=== PATIENT | female | born 1990 | race Caucasian/White ===

== ENCOUNTER 2018-08-06 11:16 | Outpatient (CLI) | payer BC ==
[~2018-08-06] VITALS: Ht 172.7 cm; Wt 82.6 kg
[2018-08-06] MEDS ORDERED: BCP PO (11:35)
[2018-08-09] MEDS ORDERED: IBUP-1773 PO (08:38)
[2018-08-09] MEDS ORDERED: ACHD5005 PO (08:38)
== END 2018-08-06 11:46 ==
LOC: PREOP 11:16
PROVIDERS: ATTEND Obstetrics & Gynecology
DX: Z01.818 Encounter for other preprocedural examination (principal); R10.2 Pelvic and perineal pain

== ENCOUNTER 2018-08-09 06:05 | Day surgery (SDC) | payer BC ==
[~2018-08-09] VITALS: Ht 172.7 cm; Wt 80.5 kg
[~2018-08-09 06:05] MED LIST: BCP PO
--- OUTSIDE RECORDS SUMMARY | 2018-08-09 06:09 | XMS REPORT | Clinical Summary ---
Author Author [facility] Organization [facility] Address Unknown Phone Unavailable Care Team Providers Care Cisco Consultant Name Role Phone Anastasia Souza MD PCP Source Comments Some departments are not documenting in the electronic medical record. If you do not see the information that you expected, contact Release of Information in the Health Information Management department at [phone] for further assistance in locating additional records.[facility] Allergies No Known Allergies Medications End Date Status Medication Sig Dispensed Refills Start Date Active electrolyte GUT PEG Mix as 4000 mL 0 (NULYTELY, COLYTE, directed on 8 GAVILYTE-N) 420 gram oral package. solution Follow prep instructions. Refrigerate once mixed. Active omeprazole DR(+) Take one 30 capsule 3 (PRILOSEC) 20 mg capsule capsule by 8 mouth daily before breakfast. Active lidocaine (LIDODERM) 5 % Apply one 30 patch 1 topical patch patch 8 topically to affected area every 24 hours. Apply patch for 12 hours, then remove for 12 hours before repeating. Active desogestrel-ethinyl Take 1 tablet 0 estradiol (DESOGEN; by mouth ORTHO-CEPT (28); APRI; daily. SOLIA; RECLIPSEN (28); EMOQUETTE) tablet Active nortriptyline (PAMELOR) Take three 90 capsule 3 25 mg capsule capsules by 8 mouth at bedtime daily. Take 1 cap qhs x5d, then 2 caps qhs x5d, then 3 caps qhs thereafter Active Problems No known active problems Encounters Care Team Description Date Type Specialty Phuong Bowden, Francesco Watson MD Abdominal pain, generalized (Primary Dx); Neuropathic pain; Myalgia, other site; Spasm of muscle; Myofascial pain; Chronic bilateral low back pain without sciatica 07/08/2018 Office Visit Anesthesia Pain Phuong Bowden DO Records Request 07/07/2018 Telephone Gastroenterology Phuong Bowden DO Results 06/30/2018 Telephone Gastroenterology Phuong Bowden DO Celiac disease 06/23/2018 Hospital Lab Encounter Phuong Bowden DO 06/15/2018 Hospital Radiology Encounter Phuong Bowden DO 06/15/2018 Hospital Radiology Encounter Phuong Bowden DO Results 06/09/2018 Telephone Gastroenterology Phuong Bowden DO Celiac disease 06/04/2018 Hospital Lab Encounter Phuong Bowden DO Celiac disease (Primary Dx) 06/04/2018 Office Visit Gastroenterology from Last 3 Months Family History Medical History Relation Name Comments None Reported Father None Reported Mother Relation Name Status Comments Father Alive Mother Alive Social History Date Tobacco Use Types Packs/Day Years Used Never Smoker Smokeless Tobacco: Never Used Alcohol Use Drinks/Week oz/Week Comments Yes Sex Assigned at Date Recorded Not on file Industry Job Start Date Occupation Not on file Not on file Not on file Travel End Travel History Travel Start No recent travel history available. Last Filed Vital Signs Time Taken Vital Sign Reading 07/08/2018 7:55 AM [employer] SOFTWARE ENGINE[employer] Blood Pressure 116/81 07/08/2018 7:55 AM [employer] SOFTWARE ENGINEER Pulse 70 - Temperature - 07/08/2018 7:55 AM [employer] SOFTWARE ENGINEER Respiratory Rate 16 07/08/2018 7:55 AM [employer]AVA SOFTWARE ENGINEER Oxygen Saturation 98% - Inhaled Oxygen - Concentration 07/08/2018 7:55 AM JAVA SOFTWARE ENGINEER Weight 81.2 kg (179 lb) 07/08/2018 7:55 AM JAVA SOFTWARE ENGINEER Height 182.9 cm (6') 07/08/2018 7:55 AM JAVA SOFTWARE ENGINEER Body Mass Index 24.28 Plan of Treatment Health Maintenance Due Date Last Done Comments PHYSICAL (COMPREHENSIVE) 1999 EXAM HPV VACCINES (1 - Female 2003 3-dose series) HIV SCREENING 2007 DTAP/TDAP VACCINES (1 - 2010 Tdap) CERVICAL CANCER SCREENING 2013 INFLUENZA VACCINE 03/10/2018 Procedures Comments Procedure Name Priority Date/Time Associated Diagnosis CELIAC ASSOC HLA TYPING, Routine 06/23/2018 Celiac disease BLOOD 10:[address] ENTEROGRAPHY Routine 06/15/2018 Celiac disease 2:23 PM JAVA SOFTWARE ENGINEER BONE DENSITY SPINE/HIP Routine 06/15/2018 Celiac disease 1:30 PM JAVA SOFTWARE ENGINEER ENDOMYSIAL AB, IGA Routine 06/04/2018 Celiac disease W/REFLEX 12:20 PM CDT CELIAC SCREEN Routine 06/04/2018 Celiac disease 12:20 PM CDT CORTISOL,RANDOM Routine 06/04/2018 Celiac disease 12:20 PM CDT 25-OH VITAMIN D (D2 + D3) Routine 06/04/2018 Celiac disease 12:20 PM CDT from Last 3 Months Results * CELIAC ASSOC HLA TYPING, BLOOD (06/23/2018 10:39 AM JAVA SOFTWARE ENGINEER) DQ Alpha 1 01,05:01 REFERENCE [facility] Reference range: Not Applicable [facility] DQ Beta 1 02:01,05:03 REFERENCE [facility] Reference range: Not Applicable DQ Serologic Equivalent: 2,5 [facility] Celiac Gene Pairs Yes REFERENCE LAB [facility] Interpretation Celiac These genes are permissive for [facility] HLA-DQ celiac disease.The absence of HLA celiac permissive genes would make the presence of celiac disease unlikely.However, these genes can also be present in the normal population. ADDITIONAL INFORMATION Method: Molecular typing of HLA antigens performed using reverse SSOP and/or SSP methods, reported as serological equivalents and low to medium resolution molecular values. Performing Laboratory CLIA# [id number] [facility] Performing Organization Address City/State/Zipcode Phone Number REFERENCE LAB REFERENCE LAB See results for address. * CT ENTEROGRAPHY (06/15/2018 2:23 PM JAVA SOFTWARE ENGINEER) Impressions Performed At Unremarkable CT enterography. [facility] By my electronic signature, I attest that I have personally reviewed the images for this examination and formulated the interpretations and opinions expressed in this report Finalized by Yovani Austin D.O. on 06/15/2018 2:46 PM. Dictated by Pato Ramirez D.O. on 06/15/2018 2:25 PM. Narrative Performed At CT ABDOMEN AND PELVIS [facility] Clinical Indication: Female, 28 years. Abdominal pain, history of celiac disease. Technique:Multiple contiguous axial images were obtained through the abdomen and pelvis following the administration of IV contrast material. Post processing coronal and sagittal reconstruction images were made from the axial images. IV contrast: Omnipaque-350 Bowel contrast:Breeza and water Comparison: None FINDINGS: Lower Thorax: Unremarkable. Liver and Biliary system: Unremarkable. Spleen: Unremarkable. Adrenal Glands and Kidneys: Unremarkable. Pancreas and Retroperitoneum: Unremarkable. Aorta and Major Vessels: Normal caliber abdominal aorta with widely patent major visceral artery origins. Bowel, Mesentery and Peritoneal space: There is adequate distention of the small bowel loops with the ingested oral contrast material. The small and large bowel loops are normal in caliber. No mural thickening or obvious mucosal abnormalities demonstrated. No perienteric inflammation. No adenopathy or ascites. Pelvis: Unremarkable. Abdominal wall and Osseous Structures: No aggressive appearing osseous lesion. Procedure Note Interface, Radiant Results - 06/15/2018 2:[address] ABDOMEN AND PELVIS Clinical Indication: Female, 28 years. Abdominal pain, history of celiac disease. Technique: Multiple contiguous axial images were obtained through the abdomen and pelvis following the administration of IV contrast material. Post processing coronal and sagittal reconstruction images were made from the axial images. IV contrast: Omnipaque-350 Bowel contrast: Breeza and water Comparison: None FINDINGS: Lower Thorax: Unremarkable. Liver and Biliary system: Unremarkable. Spleen: Unremarkable. Adrenal Glands and Kidneys: Unremarkable. Pancreas and Retroperitoneum: Unremarkable. Aorta and Major Vessels: Normal caliber abdominal aorta with widely patent major visceral artery origins. Bowel, Mesentery and Peritoneal space: There is adequate distention of the small bowel loops with the ingested oral contrast material. The small and large bowel loops are normal in caliber. No mural thickening or obvious mucosal abnormalities demonstrated. No perienteric inflammation. No adenopathy or ascites. Pelvis: Unremarkable. Abdominal wall and Osseous Structures: No aggressive appearing osseous lesion. IMPRESSION Unremarkable CT enterography. By my electronic signature, I attest that I have personally reviewed the images for this examination and formulated the interpretations and opinions expressed in this report Finalized by Yovani Austin D.O. on 06/15/2018 2:46 PM. Dictated by Pato Ramirez D.O. on 06/15/2018 2:25 PM. Performing Organization Address City/State/Zipcode Phone Number [facility] * BONE DENSITY SPINE/HIP (06/15/2018 1:30 PM JAVA SOFTWARE ENGINEER) Impressions Performed At Bone mineral density is within the expected range for age. [facility] General comments regarding interpretation of bone mineral density measurements : a) Consider FDA-approved medical therapies in the setting of Z-score below the expected range for age in a patient with recent fractures and/or chronic high risk medications (such as glucocorticoids). Treatment may also be indicated based on clinical judgement and/or patient preference. b) Interval between BMD testing should be determined according to each patient 's clinical status: typically one year after initiation or change of therapy is appropriate, with longer intervals once therapeutic effect is established. More frequent testing is appropriate in conditions with rapid bone loss. Approved by David Gonzalez M.D. on 06/15/2018 1:34 PM By my electronic signature, I attest that I have personally reviewed the images for this examination and formulated the interpretations and opinions expressed in this report Finalized by James Carroll M.D. on 06/15/2018 2:24 PM. Dictated by David Gonzalez M.D. on 06/15/2018 1:33 PM. Narrative Performed At BONE DENSITOMETRY [facility] CLINICAL INDICATION: 28-year-old female. Celiac disease. COMPARISON: None FINDINGS: DEXA scan of the lumbar spine and bilateral hips were performed with [employer]. LUMBAR SPINE, L1-L4 1.290 g/cm2, Z-score of 0.2 LEFT FEMORAL NECK 1.138 g/cm2, Z-score of 0.4 LEFT TOTAL HIP 1.147 g/cm2, Z-score of 0.7 RIGHT FEMORAL NECK 1.075 g/cm2, Z-score of -0.1 RIGHT TOTAL HIP 1.114 g/cm2, Z-score of 0.5 Categories of bone mineral density (Z-score)* Below the expected range for age (-2.0 and lower) Within the expected range for age (above -2.0) *Based on region with lowest bone mineral density. Procedure Note Interface, Radiant Results - 06/15/2018 2:27 PM JAVA SOFTWARE ENGINEER BONE DENSITOMETRY CLINICAL INDICATION: 28-year-old female. Celiac disease. COMPARISON: None FINDINGS: DEXA scan of the lumbar spine and bilateral hips were performed with [employer]. LUMBAR SPINE, L1-L4 1.290 g/cm2, Z-score of 0.2 LEFT FEMORAL NECK 1.138 g/cm2, Z-score of 0.4 LEFT TOTAL HIP 1.147 g/cm2, Z-score of 0.7 RIGHT FEMORAL NECK 1.075 g/cm2, Z-score of -0.1 RIGHT TOTAL HIP 1.114 g/cm2, Z-score of 0.5 Categories of bone mineral density (Z-score)* Below the expected range for age (-2.0 and lower) Within the expected range for age (above -2.0) *Based on region with lowest bone mineral density. IMPRESSION Bone mineral density is within the expected range for age. General comments regarding interpretation of bone mineral density measurements: a) Consider FDA-approved medical therapies in the setting of Z-score below the expected range for age in a patient with recent fractures and/or chronic high risk medications (such as glucocorticoids). Treatment may also be indicated based on clinical judgement and/or patient preference. b) Interval between BMD testing should be determined according to each patient' s clinical status: typically one year after initiation or change of therapy is appropriate, with longer intervals once therapeutic effect is established. More frequent testing is appropriate in conditions with rapid bone loss. Approved by David Gonzalez M.D. on 06/15/2018 1:34 PM By my electronic signature, I attest that I have personally reviewed the images for this examination and formulated the interpretations and opinions expressed in this report Finalized by James Carroll M.D. on 06/15/2018 2:24 PM. Dictated by David Gonzalez M.D. on 06/15/2018 1:33 PM. Performing Organization Address City/State/Zipcode Phone Number [facility] * ENDOMYSIAL AB, IGA W/REFLEX (06/04/2018 12:20 PM CDT) Endomysial IgA Negative [facility] Reference range: Negative A negative serum IgA endomysial antibody is usually seen in normal individuals, however a diagnosis of celiac disease, dermatitis herpetiformis and other gluten sensitive disorders cannot be completely excluded, as this test may be negative in a subset of individuals with these disorders. If the clinical suspicion for one of these disorders is high, recommend further testing for gluten sensitivity as indicated by the Celiac Disease Comprehensive [facility] ([facility] Code CDCOM). In addition serum IgA endomysial antibody may also be negative in gluten-sensitive patients (with celiac disease, dermatitis herpetiformis or other gluten-sensitive disorders), who adhere to a strict gluten-free diet. ADDITIONAL INFORMATION This test has been modified from the delicatessen clerk's instructions. Its performance characteristics were determined by [facility] in a manner consistent with CLIA requirements. This test has not been cleared or approved by the U.S. Food and Drug Administration. [facility] Specimen Blood Performing Organization Address City/[facility] Phone Number REFERENCE LAB REFERENCE LAB See results for address. * CELIAC SCREEN (06/04/2018 12:20 PM CDT) TTG IgA 4.4 <15 U/mL [facility] Interpretation NORMAL [facility] Specimen Blood Performing Organization Address [facility] Phone Number [facility] [address] [place] [address] * CORTISOL,RANDOM (06/04/2018 12:20 PM CDT) Cortisol, Random 8.5 5.0 - 20.0 MCG/DL [facility] Specimen Blood Performing Organization Address [facility] Phone Number MA[facility] LAB [address] [place] [address] * 25-OH VITAMIN D (D2 + D3) (06/04/2018 12:20 PM CDT) Vitamin D(25-OH)Total 45.1 30 - 80 NG/ML [facility] Specimen Blood Performing Organization Address [facility] Phone Number MA[facility] LAB [address] [place] [address] from Last 3 Months Insurance Payer Benefit Subscriber ID Type Phone Address Plan / Group [employer] xxxxxxxxxxxx PPO BLUE OUT OF STATE Advance Directives Patient has advance care planning documents on file. For more information, please contact: [facility] [address] [place] [address]
--- OUTSIDE RECORDS SUMMARY | 2018-08-09 06:10 | XMS REPORT | Encounter Summary ---
Author Author [place] [facility] [place] Address Unknown Phone Unavailable Care Team Providers Care Corrective And Manual Arts Therapist Name Role Phone Anastasia Souza MD PCP Reason for Referral * Consult, Test & Treat (Routine) Referred By Contact Referred To Contact Status Reason Specialty Diagnoses / Procedures Mary Bowden DO [address] [place] [address] [place] [address] [facility] Spn Anes Pain Cl Joe Cutler MD [facility] [address] [place] [address] No Auth Needed Specialty Services Anesthesia Pain Diagnoses Required Celiac disease * Radiology Services (Routine) Referred By Contact Referred To Contact Status Reason Specialty Diagnoses / Procedures Mary Bowden DO [address] [place] [address] Ct 1[address] [place] [address] No Auth Needed Radiology Diagnoses Celiac disease P rocedures CT ENTEROGRAPHY * Radiology Services (Routine) Referred By Contact Referred To Contact Status Reason Specialty Diagnoses / Procedures Mary Bowden DO [address] [place] [address] [place] [id number] Gen Radiology 1st fl Js [address] [place] [address] No Auth Needed Radiology Diagnoses Celiac disease P rocedures BONE DENSITY SPINE/HIP Reason for Visit * Reason Comments GI Problem New patient * Consult, Test & Treat (Routine) Referred By Contact Referred To Contact Status Reason Specialty Diagnoses / Procedures Jaycee Glaser, EFREN [address] [place] [address] Julius Tran MD [address] [place] [address] New Request Gastroenterology Diagnoses Celiac disease Periumbilical pain Encounter Details Care Team Description Date Type Department Mary Bowden DO [address] [place] [address] [phone] Celiac disease (Primary Dx) 06/04/2018 Office Visit [facility] - Internal Medicine [address] [place] [address] Social History Date Tobacco Use Types Packs/Day Years Used Never Smoker Smokeless Tobacco: Never Used Alcohol Use Drinks/Week oz/Week Comments Yes Sex Assigned at Date Recorded Not on file Industry Job Start Date Occupation Not on file Not on file Not on file Travel End Travel History Travel Start No recent travel history available. as of this encounter Last Filed Vital Signs Time Taken Vital Sign Reading 06/04/2018 11:26 AM CDT Blood Pressure 129/89 06/04/2018 11:26 AM CDT Pulse 72 - Temperature - - Respiratory Rate - - Oxygen Saturation - - Inhaled Oxygen - Concentration 06/04/2018 11:26 AM CDT Weight 81.2 kg (179 lb) 06/04/2018 11:26 AM CDT Height 179.8 cm (5' 10.8") 06/04/2018 11:26 AM CDT Body Mass Index 25.11 in this encounter Patient Instructions * Patient Instructions* Karishma Maki, FREEDOM - 06/04/2018 11:20 AM CDT -Blood work today. Please stop by the lab after you check out. -CT enterography -DEXA (bone density) scan -Lidoderm patch. 12 hours on, 12 hours off. Have patch on during the day. -Referral to pain management Please contact Dr. Bowden's nurse, Karishma RN, at [phone] with any questions or concerns. in this encounter Progress Notes * Mary Bowden, DO - 06/04/2018 11:20 AM CDT Date of Service: 06/04/2018 Subjective: Cherelle Oliver is a 28 y.o. female here to establish care. History of Present Illness Ms. Oliver is a 28 yo with history of celiac disease diagnosed in August 2014 based on duodenal biopsies, celiac serologies were negative at that time. She initially presenting with abdominal pain, nausea with change in bowel pattern with looser stools and with avoidance of gluten the symptoms significantly improved. She has not followed up with GI since that time. She presents today after recently completing an EGD and colonoscopy in April 2018. Both appeared normal with mild chronic inflammation of the stomach, normal duodenal biopsies and normal random colon biopsies. Her biggest complaint today is pain that began around October 2017, camping on suddenly and is been present almost constantly since that time. She cannot appreciate any exacerbating factors and denies that food, passage of bowels or movement makes any difference to the pain. She applies a heating pad at bedtime which does help. By pressing around her periumbilical area this does exacerbate the pain. She has rare nausea no vomiting. Bowels are moving 3 times a day and a consistency of 1-5 on the Cabell stool scale, this is unchanged for her, she denies any straining or constipation. She has had no antibiotics, recent travel or exposure to sick contacts. She also inquires if she has celiac disease. At the time of her endoscopy I reported that endoscopically her small bowel looks normal and biopsies did not show evidence of active disease. Her mother was present and the patient tells me that she interpreted this that she does not have celiac disease therefore she is began eating gluten since her endoscopy about a month ago. She has had no significant change in symptoms since initiation of gluten. Outside records were reviewed: Stool studies completed in 2013: C. difficile not detected, leukocytes negative , Giardia negative, stool culture negative, Campylobacter negative EGD completed August 2014: Normal esophagus, normal stomach, duodenal mucosal atrophy, biopsied. Colonoscopy dated August 2014: Normal terminal ileum, normal colon, biopsies taken from both ileum and colon. Pathology from August 2014: Duodenal mucosa with suboptimal to total villous atrophy, increased intraepithelial lymphocytes, hyperplasia, and increased lymphoplasmacytic inflammation in the lamina propria. Consistent with celiac disease, terminal ileum biopsies were normal, colon biopsies were normal, next Blood work from Dr. Souza - esr 8, IgA 143, ttg <2, deaminated IgG6, cmp nl, TSH nl Past Medical History: Diagnosis Date Celiac disease Periumbilical abdominal pain Past Surgical History: Procedure Laterality Date COLONOSCOPY 04/2018 Family History Problem Relation Age of Onset None Reported Mother None Reported Father Social History Social History Marital status: Single Spouse name: N/A Number of children: N/A Years of education: N/A Social History Main Topics Smoking status: Never Smoker Smokeless tobacco: Never Used Alcohol use Yes Drug use: No Sexual activity: Yes Partners: Male Other Topics Concern Not on file Social History Narrative No narrative on file Review of Systems Constitutional: Positive for fatigue. HENT: Positive for congestion. Eyes: Negative. Respiratory: Negative. Cardiovascular: Negative. Gastrointestinal: Positive for abdominal pain. Endocrine: Negative. Genitourinary: Positive for pelvic pain. Musculoskeletal: Negative. Skin: Negative. Allergic/Immunologic: Negative. Neurological: Negative. Hematological: Negative. Psychiatric/Behavioral: Negative. All other systems reviewed and are negative. Objective: electrolyte GUT PEG (NULYTELY, COLYTE, GAVILYTE-N) 420 gram oral solution Mix as directed on package. Follow prep instructions. Refrigerate once mixed. omeprazole DR(+) (PRILOSEC) 20 mg capsule Take one capsule by mouth daily before breakfast. Vitals: 06/04/18 1126 BP: 129/89 Pulse: 72 Weight: 81.2 kg (179 lb) Height: 179.8 cm (70.8") Body mass index is 25.11 kg/m. Physical Exam Constitutional: She is oriented to person, place, and time. She appears well- developed and well-nourished. HENT: Head: Atraumatic. Eyes: Pupils are equal, round, and reactive to light. EOM are normal. Neck: Neck supple. Cardiovascular: Normal rate, regular rhythm and normal heart sounds. Exam reveals no friction rub. No murmur heard. Pulmonary/Chest: Effort normal and breath sounds normal. No respiratory distress. She has no wheezes. She has no rales. Abdominal: Soft. Bowel sounds are normal. She exhibits no distension and no mass. There is tenderness (tenderness is focused around the umbilicus with tenderness to even light touch, she has a positive Carnett sign. ). There is no rebound and no guarding. Lymphadenopathy: She has no cervical adenopathy. Neurological: She is alert and oriented to person, place, and time. Skin: Skin is warm and dry. Psychiatric: She has a normal mood and affect. Assessment and Plan: Ms. Oliver is a 28-year-old female with history of celiac disease initially diagnosed in 2014 via duodenal biopsies, celiac serologies were negative at that time however she did respond to gluten avoidance with resolution in her abdominal pain, nausea and improvement in her diarrhea. She has not followed up since 2014 and presents today to establish care. Overall she reports that she has been doing fairly well except she has periumbilical pain that has been tender to even light touch since October 2017 with no evidence of exacerbation with food, movement or bowel passage. She has continued to have looser stools though this is improved since her initial diagnosis of celiac disease. She recently underwent a EGD and colonoscopy in April 2018 that were normal with mild chronic inflammation of the stomach, no evidence of celiac disease on the duodenal biopsies and normal random colon biopsies. At this time, I am not seeing any evidence of active disease. I did clarify with her that I think she carries a history of celiac disease however with gluten avoidance she has gotten this under control, as we are not seeing any inflammation on the duodenal biopsies. We will check celiac serologies now as she does report gluten exposure over the last few months and recommended gluten avoidance as I feel that over a period of time, with persistence, she would have recurrence of symptoms. With her history of celiac disease will also obtain a vitamin D level and obtain a baseline DEXA scan. We also discussed long-term complications of vitamin deficiencies as well as the low risk of T- cell lymphoma. In regards to her abdominal pain, this is very focal pain around her umbilicus and she has a positive Carnett sign and I feel this is more musculoskeletal and nerve related and would recommend that she see pain management. In the interim we will provide her a lidocaine patch which she can use during the day and remove at night. With her history of celiac disease and continued loose stools I will complete a CT enterography to assure that there is no additional small bowel inflammation that was not seen on her prior endoscopies that may be contributing to her pain. After discussion, we will proceed with the following: - Bood work today - Lidoderm patch, 12 hours on and 12 hours off - Referral to pain management. - CT enterography - DEXA scan. - RTC in 1 year. All questions answered and Ms. Oliver agrees with the current plan. Addendum 06/09: Celiac panel, vit D, cortisol and TSH all WNL. Addendum 06/11: Further discussion with pt and she would like to know her genetics for celiac and have placed order. Addendum 06/16: DEXA normal CTE normal. Addendum 06/29: Celiac genes present making celiac disease permissive. in this encounter Miscellaneous Notes * Addendum Note - Mary Bowden DO - 06/04/2018 11:20 AM CDT Addended by: MARY BOWDEN on: 06/11/2018 02:06 PM Modules accepted: Orders in this encounter Plan of Treatment Order Schedule Name Priority Associated Diagnoses Ordered: 06/04/2018 AMB REFERRAL TO SPINE CENTER Routine Celiac disease as of this encounter Results * CELIAC [facility]OC HLA TYPING, BLOOD (06/23/2018 10:39 AM [facility]) DQ Alpha 1 01,05:01 REFERENCE [facility] Reference range: Not Applicable [facility] DQ Beta 1 02:01,05:03 REFERENCE LAB Reference range: Not Applicable DQ Serologic Equivalent: 2,5 [facility] Celiac Gene Pairs Yes REFERENCE LAB [facility] Interpretation Celiac These genes are permissive [...] medium resolution molecular values. Performing Laboratory CLIA# [id number] [facility] Performing Organization Address City/State/Zipcode Phone Number REFERENCE LAB REFERENCE LAB See results for address. * CT ENTEROGRAPHY (06/15/2018 2:23 PM [facility]) Impressions Performed At Unremarkable CT enterography. [facility] [...] Interface, Radiant Results - 06/15/2018 2:[address] ABDOMEN AND PELVIS Clinical Indication: Female, [...] * BONE DENSITY SPINE/HIP (06/15/2018 1:30 PM [facility]) Impressions Performed At Bone mineral density is [...] spine and bilateral hips were performed with [employer]. LUMBAR SPINE, L1-L4 1.290 g/cm2, Z-score of [...] Interface, Radiant Results - 06/15/2018 2:27 PM [facility] BONE DENSITOMETRY CLINICAL INDICATION: 28-year-old female. Celiac disease. COMPARISON: None FINDINGS: DEXA scan of the lumbar spine and bilateral hips were performed with [employer]. LUMBAR SPINE, L1-L4 1.290 g/cm2, Z-score of [...] PM. Performing Organization Address City/State/Zipcode Phone Number RAD RESULTS * ENDOMYSIAL AB, IGA W/REFLEX [...] as indicated by the Celiac Disease Comprehensive [place] ([facility] Code CDCOM). In addition serum IgA endomysial antibody may also be negative in gluten-sensitive patients (with celiac disease, dermatitis herpetiformis or other gluten-sensitive disorders), who adhere to a strict gluten-free diet. ADDITIONAL INFORMATION This test has been modified from the digital advertising specialist's instructions. Its performance characteristics were determined by [facility] in a manner consistent with CLIA requirements. This test has not been cleared or approved by the U.S. Food and Drug Administration. [facility] Specimen Blood Performing Organization Address [facility] [place] Phone Number REFERENCE LAB REFERENCE LAB See results for address. * CELIAC SCREEN (06/04/2018 12:20 PM CDT) TTG IgA 4.4 <15 U/mL [facility] Interpretation NORMAL [facility] Specimen Blood Performing Organization Address [facility] [place] Phone Number MAIN LAB [address] [place] [address] * CORTISOL,RANDOM (06/04/2018 12:20 PM CDT) Cortisol, Random 8.5 5.0 - 20.0 MCG/DL [facility] Specimen Blood Performing Organization Address [facility] [place] Phone Number MAIN LAB [address] [place] [address] * 25-OH VITAMIN D (D2 + D3) (06/04/2018 12:20 PM CDT) Vitamin D(25-OH)Total 45.1 30 - 80 NG/ML [facility] Specimen Blood Performing Organization Address [facility] Phone Number [facility] LAB [address] [place] [address] in this encounter Visit Diagnoses Diagnosis Celiac disease - Primary in this encounter
--- OUTSIDE RECORDS SUMMARY | 2018-08-09 06:10 | XMS REPORT | Encounter Summary ---
Author Author [facility] Organization [facility] Address Unknown Phone Unavailable Care Team Providers Care Wig Maker Name Role Phone Anastasia Souza MD PCP Reason for Referral * Consult, Test & Treat (Routine) Referred By Contact Referred To Contact Status Reason Specialty Diagnoses / Procedures Francesco Wood MD [address] [facility] [address] [place] [address] Closed Specialty Services Diagnoses Required Abdominal pain, generalized Neuropathic pain Myalgia, other site Spasm of muscle Myofascial pain Chronic bilateral low back pain without sciatica * Pain Authorization (Routine) Referred By Contact Referred To Contact Status Reason Specialty Diagnoses / Procedures Francesco Wood MD [address] [facility] [address] [place] [address] [place] [address] [place] [address] No Auth Needed Anesthesia Pain Diagnoses Abdominal pain, generalized Neuropathic pain Myalgia, other site Spasm of muscle Myofascial pain Chronic bilateral low back pain without sciatica P rocedures [facility] AMB SPINE TRIGGER POINT INJECTION Reason for Visit * Reason Comments Pain * Consult, Test & Treat (Routine) Referred By Contact Referred To Contact Status Reason Specialty Diagnoses / Procedures Phuong Bowden DO [address] [facility] [address] [place] [address] Bhg Spn Anes Pain Cl Joe Cutler MD [facility] [address] [place] [address] No Auth Needed Specialty Services Anesthesia Pain Diagnoses Required Celiac disease Encounter Details Care Team Description Date Type Department Phuong Bowden DO [address] [facility] [address] [place], [place] [id number] Francesco Wood MD [address] [facility] [address] [place], [place] [id number] Abdominal pain, generalized (Primary Dx); Neuropathic pain; Myalgia, other site; Spasm of muscle; Myofascial pain; Chronic bilateral low back pain without sciatica 07/08/2018 Office Visit [facility] [address] [facility] [address] [place] [address] Social History Date Tobacco Use Types Packs/Day [...] Taken Vital Sign Reading 07/08/2018 7:55 AM QUALITY TECHNICIAN Blood Pressure 116/81 07/08/2018 7:55 AM QUALITY TECHNICIAN Pulse 70 - Temperature - 07/08/2018 7:55 AM QUALITY TECHNICIAN Respiratory Rate 16 07/08/2018 7:55 AM QUALITY TECHNICIAN Oxygen Saturation 98% - Inhaled Oxygen - Concentration 07/08/2018 7:55 AM QUALITY TECHNICIAN Weight 81.2 kg (179 lb) 07/08/2018 7:55 AM QUALITY TECHNICIAN Height 182.9 cm (6') 07/08/2018 7:55 AM QUALITY TECHNICIAN Body Mass Index 24.28 in this encounter Functional Status Date of Assessment Functional Status Response 07/08/2018 Does the patient have a hearing impairment: No 07/08/2018 Does the patient have a visual impairment: Yes 07/08/2018 Does the patient have impaired ambulation: No 07/08/2018 Does the patient have an activity of daily living No (ADL) impairment: 07/08/2018 Does the patient have an instrumental activity of No daily living (IADL) impairment: Date of Assessment Cognitive Status Response 07/08/2018 Does the patient have a cognitive impairment: No as of this encounter Patient Instructions * Patient Instructions* Eva Gauthier - 07/08/2018 8:00 AM QUALITY TECHNICIAN General Instructions: How to reach me: Please send a [employer] message to the [facility] or leave a voicemail for my nurse Bonita at [phone]. Scheduling: Our scheduling phone number is [phone]. How to get a medication refill: Five business days before refill needed, please use the [employer] Refill request or contact your pharmacy directly to request medication refills. How to receive your test results: If you have signed up for [employer], you will receive your test results and messages from me this way. Otherwise, you will get a phone call or letter. If you are expecting results and have not heard from my office within 2 weeks of your testing, please send a [employer]commerce message or call my office. Support for many chronic illnesses is available through [place]: [employer] or [phone]. For questions on nights, weekends or holidays, call the sausage machine operator at , and ask for the doctor cotton farmer for Anesthesia Pain Management. ITY TECHNICIAN in this encounter Progress Notes * Francesco Wood MD - 07/08/2018 8:00 AM QUALITY TECHNICIAN Dear Dr. Anastasia Souza, I appreciate your kind referral of Cherelle Oliver for evaluation of pain. Please see my note below for the full details of the evaluation and management plan. Thank you, Francesco Wood MD [facility] - Inter[facility] NEW PATIENT HISTORY AND PHYSICAL Subjective Chief Complaint: Abd pain HPI: Cherelle Oliver is a 28 y.o. female who has a past medical history of Celiac disease and Periumbilical abdominal pain. who now presents for initial consultation. The pain is in the abdomen. She states it centers at the umbilicus and is in a circular shape broadly around it. Pain started: 11/2017 Initial inciting injury or event: No. No prior //abd surgery. Numbness/tingling: No The pain ranges 4-9/10 The pain is described as aching, stabbing, shooting, penetrating, sharp. The pain is exacerbated by no clear factor. No correlation with meals, BM, urination, intercourse, or any other factor she can identify. The pain is partially alleviated by heat and sleep. She states that extensive GI workup with imaging and endoscopy has been unremarkable. She does carry the celiac gene, which means you could potentially have celiac disease, but is only permissive, not definitive. There is allodynia in the abdomen at times, but not today. She denies any color change. PRIOR MEDICATIONS: Effective Ineffective NSAID Unable to tolerate Never Gabapentin Lyrica Ami/Nortriptyline Cymbalta Tizanidine PRIOR INTERVENTIONS: No spine surgery Effective Ineffective Exercise, limited by pain Chiropractic (little) Cherelle Oliver denies any recent fevers, chills, infection, antibiotics, bowel or bladder incontinence, saddle anesthesia, bleeding issues, or recent anticoagulant. ROS: All 14 systems reviewed and found to be negative except as above and as follows. +fatigue, congestion, diarrhea, seasonal allergies. 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 Social History Social History Marital status: Single Spouse name: N/A Number of children: N/A Years of education: N/A Occupational History Not on file. Social History Main Topics Smoking status: Never Smoker Smokeless tobacco: Never Used Alcohol use Yes Drug use: No Sexual activity: Yes Partners: Male Other Topics Concern Not on file Social History Narrative No narrative on file Allergies: No Known Allergies Medications: Current Outpatient Prescriptions: desogestrel-ethinyl estradiol (DESOGEN; ORTHO-CEPT (28); APRI; SOLIA; RECLIPSEN (28); EMOQUETTE) tablet, Take 1 tablet by mouth daily., Disp: , Rfl: electrolyte GUT PEG (NULYTELY, COLYTE, GAVILYTE-N) 420 gram oral solution, Mix as directed on package. Follow prep instructions. Refrigerate once mixed., Disp: 4000 mL, Rfl: 0 lidocaine (LIDODERM) 5 % topical patch, Apply one patch topically to affected area every 24 hours. Apply patch for 12 hours, then remove for 12 hours before repeating., Disp: 30 patch, Rfl: [address](+) (PRILOSEC) 20 mg capsule, Take one capsule by mouth daily before breakfast., Disp: 30 capsule, Rfl: 3 Physical examination: BP 116/81 | Pulse 70 | Resp 16 | Ht 182.9 cm (72") | Wt 81.2 kg (179 lb) | SpO2 98% | BMI 24.28 kg/m Pain Score: Five General: The patient is a well-developed, well nourished 28 y.o. female in no acute distress. HEENT: Head is normocephalic and atraumatic. Pupils are equal and reactive to light bilaterally. Cardiac: Based on palpation, pulse appears to be regular rate and rhythm. Pulmonary: The patient has unlabored respirations and bilateral symmetric chest excursion. Abdomen: Soft and nondistended. There is diffuse TTP throughout the abdomen, worst along the midline and near the umbilicus. There is no rebound, some guarding. +Carnett's with leg raise. Extremities: No clubbing, cyanosis, or edema. Neurologic: The patient is alert and oriented times 3. Cranial nerves II through XII are intact without any focal deficits. There is no sensory deficit to light touch or pinprick in the affected areas. There is no allodynia noted. Musculoskeletal: Gait is normal. L-Spine There is no point vertebral tenderness in the midline. There is mild lumbar paraspinal tenderness. Paraspinal muscle tone is increased. There is no tenderness or radiating pain with palpation over the SI joints, piriformis, or greater trochanteric bursae bilaterally. ROM with flexion, extension, rotation, and lateral bending is intact. Strength is equal and adequate bilaterally in the flexors and extensors of the bilateral lower extremities. SLR is negative bilaterally. Last Cr and LFT's: No results found for: CR, AST, ALT, ALKPHOS, TOTBILI Assessment: Cherelle Oliver is a 28 y.o. female who has a past medical history of Celiac disease and Periumbilical abdominal pain. who presents for evaluation of abdominal pain. The pain complaints are most likely due to: 1. Abdominal pain, generalized [facility] AMB SPINE TRIGGER POINT INJECTION 2. Neuropathic pain [facility] AMB SPINE TRIGGER POINT INJECTION 3. Myalgia, other site [facility] AMB SPINE TRIGGER POINT INJECTION 4. Spasm of muscle [facility] AMB SPINE TRIGGER POINT INJECTION 5. Myofascial pain [facility] AMB SPINE TRIGGER POINT INJECTION 6. Chronic bilateral low back pain without sciatica [facility] AMB SPINE TRIGGER POINT INJECTION Patient has had an adequate trial of > 3 months of rest, exercise, NSAID's, multimodal treatment, and the passage of time without improvement of symptoms. The pain has significant impact on the daily quality of life. Plan: 1. Plan for TPI abdomen/low back at first available appointment. 2. If she fails to have improvement, will consider Bilateral TAP block with ultrasound in clinic. 3. Will trial Nortriptyline 25 to 75mg qhs. 4. Will refer to PT. 5. Follow up as needed. Risks/benefits of all pharmacologic and interventional treatments discussed and questions answered. Thank you for this kind referral for consultation. Please feel free to contact me with any questions or concerns. ITY TECHNICIAN in this encounter Plan of Treatment Order Schedule Name Priority Associated Diagnoses Expected: 07/08/2018, Expires: 10/07/2018 [facility] AMB SPINE TRIGGER POINT INJECTION Routine Abdominal pain, generalized Neuropathic pain Myalgia, other site Spasm of muscle Myofascial pain Chronic bilateral low back pain without sciatica Order Schedule Name Priority Associated Diagnoses Ordered: 07/08/2018 AMB REFERRAL TO PHYSICAL THERAPY Routine Abdominal pain, generalized Neuropathic pain Myalgia, other site Spasm of muscle Myofascial pain Chronic bilateral low back pain without sciatica as of this encounter Visit Diagnoses Diagnosis Abdominal pain, generalized - Primary Neuropathic pain Neuralgia, neuritis, and radiculitis, unspecified Myalgia, other site Spasm of muscle Myofascial pain Mylagia and myositis, unspecified Chronic bilateral low back pain without sciatica in this encounter
--- OUTSIDE RECORDS SUMMARY | 2018-08-09 06:10 | XMS REPORT | Encounter Summary ---
Author Author [facility] Organization [facility] Address Unknown Phone Unavailable Care Team Providers Care Larry Car Operator Name Role Phone Anastasia Souza MD PCP Reason for Referral * Radiology Services (Routine) Referred By Contact Referred To Contact Status Reason Specialty Diagnoses / Procedures Phuong Bowden DO [address] [place] [address] [place] [address] No Auth Needed Radiology Diagnoses Celiac disease P rocedures CT ENTEROGRAPHY * Radiology Services (Routine) Referred By Contact Referred To Contact Status Reason Specialty Diagnoses / Procedures Phuong Bowden DO [address] [place] [address] [place] [address] No Auth Needed Radiology Diagnoses Celiac disease P rocedures CT ENTEROGRAPHY Reason for Visit * Radiology Services (Routine) Referred By Contact Referred To Contact Status Reason Specialty Diagnoses / Procedures Phuong Bowden DO [address] [place] [address] [place] [address] No Auth Needed Radiology Diagnoses Celiac disease P rocedures CT ENTEROGRAPHY Encounter Details Care Team Description Date Type Department Phuong Bowden DO [address] [place] [address] [phone] 06/15/2018 Hospital [facility] Encounter [facility] [address] [place] [address] Social History Date Tobacco Use Types Packs/Day Years Used Never Smoker Smokeless Tobacco: Never Used Alcohol Use Drinks/Week oz/Week Comments Yes Sex Assigned at Date Recorded Not on file Industry Job Start Date Occupation Not on file Not on file Not on file Travel End Travel History Travel Start No recent travel history available. as of this encounter Medications at Time of Discharge Start Date End Date Medication Sig Dispensed Refills 03/29/2018 electrolyte GUT PEG Mix as 4000 mL 0 (NULYTELY, COLYTE, directed on GAVILYTE-N) 420 gram oral package. solution Follow prep instructions. Refrigerate once mixed. 06/04/2018 lidocaine (LIDODERM) 5 % Apply one 30 patch 1 topical patch patch topically to affected area every 24 hours. Apply patch for 12 hours, then remove for 12 hours before repeating. 04/27/[address](+) Take one 30 capsule 3 (PRILOSEC) 20 mg capsule capsule by mouth daily before breakfast. as of this encounter Plan of Treatment Not on fileas of this encounter Procedures Comments Procedure Name Priority Date/Time Associated Diagnosis CT ENTEROGRAPHY Routine 06/15/2018 Celiac disease 2:23 PM LEVER MILLER in this encounter Results * CT ENTEROGRAPHY (06/15/2018 2:23 PM LEVER MILLER) Impressions Performed At Unremarkable CT enterography. [facility] [...] Interface, Radiant Results - 06/15/2018 2:[address] ABDOMEN AND PELVIS Clinical Indication: Female, [...] Address City/State/Zipcode Phone Number [facility] RESULTS in this encounter Visit Diagnoses Diagnosis Celiac disease in this encounter Administered Medications Action Date Dose Rate Site Medication Order MAR Action 06/15/2018 1:45 PM LEVER MILLER 100 mL iohexol (OMNIPAQUE-350) 350 mg/mL Given injection 100 mL 100 mL, Intravenous, ONCE, 1 dose, 06/15/18 at 1345, NOTE: This is a HIGH ALERT Medication., 06/15/2018 2:23 PM LEVER MILLER 50 mL sodium chloride PF 0.9% injection 50 mL Given 50 mL, Intravenous, ONCE, 1 dose, 06/15/18 at 1345, Intra-procedure (IR) in this encounter
--- OUTSIDE RECORDS SUMMARY | 2018-08-09 06:10 | XMS REPORT | Encounter Summary ---
Author Author [facility] Organization [facility] Address Unknown Phone Unavailable Care Team Providers Care Tennis Racket Repairer Name Role Phone Anastasia oSuza MD PCP Reason for Visit * Reason Comments Results Encounter Details Care Team Description Date Type Department Phuong Bowden DO [address] [facility] [address] [place] [address] Results 06/09/2018 Telephone [facility] [address] [place] [address] Social History Date Tobacco Use Types Packs/Day Years Used Never Smoker Smokeless Tobacco: Never Used Alcohol Use Drinks/Week oz/Week Comments Yes Sex Assigned at Date Recorded Not on file Industry Job Start Date Occupation Not on file Not on file Not on file Travel End Travel History Travel Start No recent travel history available. as of this encounter Miscellaneous Notes * Telephone Encounter - Karishma Maki RN - 06/10/2018 1:40 PM CDT Incoming call from pt's Mom, Lashay, who is on pt's authorized contacts list. Per Lashay pt requested that she call to clarify. Discussed the below information in detail. Lashay verbalized understanding and thanks. She and pt will think further about gluten rechallenge. Lashay also requests copy of procedure report. Provided medical records contact information. No further questions or concerns at this time. * Telephone Encounter - Phuong Bowden DO - 06/09/2018 1:28 PM CDT The only way to truly tell if she does NOT have celiac is if we do genetic testing. If she carries the genes it just means that it is permissive, but if negative then she couldn't have celiac. This is expensive testing. The prior diagnosis was based off inflammation that was previously seen at her initial EGD from the outside physician. Her blood work was not positive at that time either. She told me that she had clinical benefit with gluten avoidance so with the duodenal biopsies and clinical improvement with gluten avoidance the diagnosis of celiac was made. Even if we can't confirm celiac, if she has had improvement with gluten avoidance she could have an intolerance and there is no testing to verify that. She had been consuming gluten but may have not had enough to blood markers to rise or long enough exposure. We can always rechallenge her and will have to wait and see if symptoms recur. If they do, then I would recommend gluten avoidance. * Telephone Encounter - Karishma Maki RN - 06/09/2018 1:10 PM CDT Notified pt of results noted below. Pt expresses confusion as she has been eating gluten for about the past month and expected her celiac screen to be elevated. Pt questioning what this means. Questioning if still needs to avoid gluten. * Telephone Encounter - Karishma Maki RN - 06/09/2018 1:08 PM CDT ----- Message from Phuong Bowden DO sent at 06/09/2018 10:11 AM CDT ----- All blood work is normal. Karishma - can you please let her know. in this encounter Plan of Treatment Not on fileas of this encounter Visit Diagnoses Not on filein this encounter
--- OUTSIDE RECORDS SUMMARY | 2018-08-09 06:10 | XMS REPORT | Encounter Summary ---
Author Author [facility] Organization [facility] Address Unknown Phone Unavailable Care Team Providers Care Motors Assembler Name Role Phone Anastasia Souza MD PCP Reason for Referral * Radiology Services (Routine) Referred By Contact Referred To Contact Status Reason Specialty Diagnoses / Procedures Phuong Bowden DO [address] [place] [address] [address] [place] [address] No Auth Needed Radiology Diagnoses Celiac disease P rocedures BONE DENSITY SPINE/HIP * Radiology Services (Routine) Referred By Contact Referred To Contact Status Reason Specialty Diagnoses / Procedures Phuong Bowden DO [address] [place] [address] [place] [facility] Radiology [address] [place] [address] No Auth Needed Radiology Diagnoses Celiac disease P rocedures BONE DENSITY SPINE/HIP Reason for Visit * Radiology Services (Routine) Referred By Contact Referred To Contact Status Reason Specialty Diagnoses / Procedures Phuong Bowden DO [address] [place] [address] Gen Radiology [address] [place] [address] No Auth Needed Radiology Diagnoses Celiac disease P rocedures BONE DENSITY SPINE/HIP Encounter Details Care Team Description Date Type Department Phuong Bowden DO [address] [place] [address] [phone] 06/15/2018 Hospital [facility] Encounter [facility] [address] [place] [address] Social History Date Tobacco Use Types Packs/Day [...] Comments Procedure Name Priority Date/Time Associated Diagnosis BONE DENSITY SPINE/HIP Routine 06/15/2018 Celiac disease 1:30 PM CARRY ALL DRIVER in this encounter Results * BONE DENSITY SPINE/HIP (06/15/2018 1:30 PM CARRY ALL DRIVER) Impressions Performed At Bone mineral density is [...] PM. Narrative Performed At BONE DENSITOMETRY [facility] RESULTS CLINICAL INDICATION: 28-year-old female. Celiac disease. COMPARISON: None FINDINGS: DEXA scan of the lumbar spine and bilateral hips were performed with [employer] Advance. LUMBAR SPINE, L1-L4 1.290 g/cm2, Z-score of [...] Interface, Radiant Results - 06/15/2018 2:27 PM CARRY ALL DRIVER BONE DENSITOMETRY CLINICAL INDICATION: 28-year-old female. Celiac disease. COMPARISON: None FINDINGS: DEXA scan of the lumbar spine and bilateral hips were performed with [employer] Advance. LUMBAR SPINE, L1-L4 1.290 g/cm2, Z-score of [...]
--- OUTSIDE RECORDS SUMMARY | 2018-08-09 06:10 | XMS REPORT | Encounter Summary ---
Author Author [facility] Organization [facility] Address Unknown Phone Unavailable Care Team Providers Care Brand Protection Manager Name Role Phone Anastasia Souza MD PCP Reason for Visit * Reason Comments Records Request Encounter Details Care Team Description Date Type Department Phuong Bowden DO [address] [facility] [address] [place] [address] Records Request 07/07/2018 Telephone [facility] [address] [place] [address] Social History Date Tobacco Use [...] encounter Miscellaneous Notes * Telephone Encounter - Bonnie Nicholas RN - 07/07/2018 11:22 AM ASSEMBLER RUBBER FOOTWEAR Pt called in wanting a copy of all her test records & procedures. Called pt back informed she needs to get those through medical records, phone number provided to pt. Denied questions. MBLER RUBBER FOOTWEAR in this encounter Plan of Treatment Not on fileas of this encounter Visit Diagnoses Not on filein this encounter
--- OUTSIDE RECORDS SUMMARY | 2018-08-09 06:10 | XMS REPORT ---
Author Triston Robles [facility] eClinicalWorks Address Unknown Phone Unavailable Care Team Providers Care Dock Coordinator Name Role Phone Triston Zhao CP Unavailable Allergies No Known Allergies Problems Problem Type Condition ICD-9 Code Onset Dates Condition Status Problem Abdominal cramping 789.00 Active Problem Perennial allergic rhinitis with seasonal variation 477.9 Active Problem Diarrhea 787.91 Active Medications No Known Medications Results No Known Results Summary Purpose eClinicalWorks Submission
--- OUTSIDE RECORDS SUMMARY | 2018-08-09 06:10 | XMS REPORT | Encounter Summary ---
Author Author [facility] Organization [facility] Address Unknown Phone Unavailable Care Team Providers Care Drafting Supervisor Name Role Phone Anastasia Souza MD PCP Encounter Details Care Team Description Date Type Department Phuong Bowden DO [address] [place] [address] Celiac disease 06/04/2018 Hospital QV LAB Encounter [id number] [place] [address] Social History Date Tobacco Use Types Packs/Day [...] Comments Procedure Name Priority Date/Time Associated Diagnosis ENDOMYSIAL AB, IGA Routine 06/04/2018 Celiac disease W/REFLEX 12:20 PM CDT CELIAC SCREEN Routine 06/04/2018 Celiac disease 12:20 PM CDT CORTISOL,RANDOM Routine 06/04/2018 Celiac disease 12:20 PM CDT 25-OH VITAMIN D (D2 + D3) Routine 06/04/2018 Celiac disease 12:20 PM CDT in this encounter Results * ENDOMYSIAL AB, IGA W/REFLEX (06/04/2018 12:20 [...] as indicated by the Celiac Disease Comprehensive [place] ([place] [facility] Code CDCOM). In addition serum IgA endomysial antibody may also be negative in gluten-sensitive patients (with celiac disease, dermatitis herpetiformis or other gluten-sensitive disorders), who adhere to a strict gluten-free diet. ADDITIONAL INFORMATION This test has been modified from the utility engineer's instructions. Its performance characteristics were determined by [facility] in a manner consistent with CLIA requirements. This test has not been cleared or approved by the U.S. Food and Drug Administration. [facility] Specimen Blood Performing Organization Address City/[facility] Phone Number REFERENCE LAB REFERENCE LAB See results for address. * CELIAC SCREEN (06/04/2018 12:20 PM CDT) TTG IgA 4.4 <15 U/mL [facility] Interpretation NORMAL [facility] Specimen Blood Performing Organization Address City/[facility]/Zipcode Phone Number [facility] [address] [place] [address] * CORTISOL,RANDOM (06/04/2018 12:20 PM CDT) Cortisol, Random 8.5 5.0 - 20.0 MCG/DL [facility] Specimen Blood Performing Organization Address City/State/Zipcode Phone Number [facility] [address] [place] [address] * 25-OH VITAMIN D (D2 + D3) (06/04/2018 12:20 PM CDT) Vitamin D(25-OH)Total 45.1 30 - 80 NG/ML [facility] Specimen Blood Performing Organization Address City/State/Zipcode Phone Number MAIN LAB [address] [place] [address] in this encounter Visit Diagnoses Diagnosis Celiac disease in this encounter
--- OUTSIDE RECORDS SUMMARY | 2018-08-09 06:10 | XMS REPORT ---
Author Author Triston Zhao [facility] eClinicalWorks Address Unknown Phone Unavailable Care Team Providers Care Erp Implementation Consultant Name Role Phone Triston Zhao CP Unavailable Allergies No Known Allergies Problems Problem Type Condition ICD-9 Code Onset Dates Condition Status Assessment Perennial allergic rhinitis with seasonal variation 477.9 Active Problem Perennial allergic rhinitis with seasonal variation 477.9 Active Medications No Known Medications Procedures Procedure Coding System Code Date Allergy-Inj Mult CPT-4 25517 Jun 20, 2014 Results No Known Results Summary Purpose eClinicalWorks Submission
--- OUTSIDE RECORDS SUMMARY | 2018-08-09 06:10 | XMS REPORT | Encounter Summary ---
Author Author [facility] Organization [facility] Address Unknown Phone Unavailable Care Team Providers Care Inventory Technician Name Role Phone Anastasia Souza MD PCP Encounter Details Care Team Description Date Type Department Phuong Bowden DO [address] [place] [address] Celiac disease 06/23/2018 Hospital QV LAB Encounter [id number] [place] [address] Social History Date Tobacco Use Types Packs/Day [...] Routine 06/23/2018 Celiac disease BLOOD 10:39 AM DEAD MAIL CHECKER in this encounter Results * CELIAC ASSOC HLA TYPING, BLOOD (06/23/2018 10:39 AM DEAD MAIL CHECKER) DQ Alpha 1 01,05:01 REFERENCE LAB Reference range: Not Applicable [facility] DQ Beta 1 02:01,05:03 REFERENCE LAB Reference range: Not Applicable DQ Serologic Equivalent: 2,5 [facility] Celiac Gene Pairs Yes REFERENCE LAB [facility] Interpretation Celiac These genes are permissive for [...] medium resolution molecular values. Performing Laboratory CLIA# [id number] [facility] Performing Organization Address City/State/Zipcode Phone Number REFERENCE LAB REFERENCE LAB See results for address. in this encounter Visit Diagnoses Diagnosis Celiac disease in this encounter
--- OUTSIDE RECORDS SUMMARY | 2018-08-09 06:10 | XMS REPORT | Encounter Summary ---
Author Author [facility] Organization [facility] Address Unknown Phone Unavailable Care Team Providers Care Milieu Coordinator Name Role Phone Anastasia Souza MD PCP Reason for Visit * Reason Comments Results Encounter Details Care Team Description Date Type Department Phuong Bowden DO [address] [facility] [address] [place] [address] Results 06/30/2018 Telephone [facility] [address] [place] [address] Social History Date Tobacco Use [...] Telephone Encounter - Karishma Maki RN - 06/30/2018 10:31 AM LASER ENGRAVER Notified pt of results and recs. Pt verbalized understanding and thanks. No further questions or concerns. R ENGRAVER * Telephone Encounter - Karishma Maki RN - 06/30/2018 10:22 AM LASER ENGRAVER ----- Message from Phuong Bowden DO sent at 06/29/2018 4:09 PM LASER ENGRAVER ----- She has the genes for celiac disease. This does not mean that she has celiac disease but it is permissive. She previously has felt improvement with gluten avoidance. It is up to her if she would like to challenge based on her symptoms but would be cautious with prior clinical improvement with gluten avoidance. Karishma - if you can let her know. R ENGRAVER in this encounter Plan of Treatment Not on fileas of this encounter Visit Diagnoses Not on filein this encounter
--- OUTSIDE RECORDS SUMMARY | 2018-08-09 06:10 | XMS REPORT ---
Author Author Triston Zhao Organization [employer] Address Unknown Phone Unavailable Care Team Providers Care Director Of Strategic Initiatives Name Role Phone Triston Zhao CP Unavailable Allergies No Known Allergies Problems Problem Type Condition Code Onset Dates Condition Status Problem Abdominal cramping 789.00 Active Problem Perennial allergic rhinitis with seasonal variation 477.9 Active Problem Diarrhea 787.91 Active Assessment DESENSITIZA TO ALLERGENS V07.1 Active Medications No Known Medications Procedures Procedure Coding System Code Date Allergy-Inj Mult CPT-4 31878 December 22, 2014 Results No Known Results Summary Purpose eClinicalWorks Submission
--- OUTSIDE RECORDS SUMMARY | 2018-08-09 06:11 | XMS REPORT ---
Author Author Triston Zhao Organization [employer] Address Unknown Phone Unavailable Care Team Providers Care Ink Blender Name Role Phone Triston Zhao CP Unavailable Allergies No Known Allergies Problems Problem Type Condition ICD-9 Code Onset Dates Condition Status Problem Abdominal cramping 789.00 Active Problem Perennial allergic rhinitis with seasonal variation 477.9 Active Problem Diarrhea 787.91 Active Assessment DESENSITIZA TO ALLERGENS V07.1 Active Medications No Known Medications Procedures Procedure Coding System Code Date Allergy-Inj Mult CPT-4 44723 January 16, 2015 Results No Known Results Summary Purpose eClinicalWorks Submission
--- OUTSIDE RECORDS SUMMARY | 2018-08-09 06:11 | XMS REPORT ---
Author Author Triston Zhao Organization [employer] Address Unknown Phone Unavailable Care Team Providers Care Home Staging Specialist Name Role Phone Triston Zhao CP Unavailable Allergies No Known Allergies Problems Problem Type Condition ICD-9 Code Onset Dates Condition Status Problem Abdominal cramping 789.00 Active Problem Perennial allergic rhinitis with seasonal variation 477.9 Active Problem Diarrhea 787.91 Active Assessment Perennial allergic rhinitis with seasonal variation 477.9 Active Medications No Known Medications Procedures Procedure Coding System Code Date Allergy-Inj Mult CPT-4 91876 Oct 02, 2014 Results No Known Results Summary Purpose eClinicalWorks Submission
--- OUTSIDE RECORDS SUMMARY | 2018-08-09 06:11 | XMS REPORT ---
Author Author Joseline Rojas [facility] eClinicalWorks Address Unknown Phone Unavailable Care Team Providers Care Rapid Outsole Stitcher Name Role Phone Joseline Rojas Unavailable Allergies No Known Allergies Problems Problem Type Condition Code Onset Dates Condition Status Problem Abdominal cramping 789.00 Active Problem Perennial allergic rhinitis with seasonal variation 477.9 Active Problem Diarrhea 787.91 Active Assessment DESENSITIZA TO ALLERGENS V07.1 Active Medications No Known Medications Procedures Procedure Coding System Code Date Allergy-Inj Mult CPT-4 34987 January 04, 2015 Results No Known Results Summary Purpose eClinicalWorks Submission
--- OUTSIDE RECORDS SUMMARY | 2018-08-09 06:11 | XMS REPORT ---
Author Author Triston Zhao Organization [employer] Address Unknown Phone Unavailable Care Team Providers Care Leather Flesher Name Role Phone Triston Zhao CP Unavailable Allergies No Known Allergies Problems Problem Type Condition ICD-9 Code Onset Dates Condition Status Problem Abdominal cramping 789.00 Active Problem Perennial allergic rhinitis with seasonal variation 477.9 Active Problem Diarrhea 787.91 Active Assessment Perennial allergic rhinitis with seasonal variation 477.9 Active Medications No Known Medications Procedures Procedure Coding System Code Date Allergy-Inj Mult CPT-4 17544 February 01, 2015 Results No Known Results Summary Purpose eClinicalWorks Submission
--- OUTSIDE RECORDS SUMMARY | 2018-08-09 06:11 | XMS REPORT ---
Author Author Triston Zhao [facility] eClinicalWorks Address Unknown Phone Unavailable Care Team Providers Care Asset Availability Leader Name Role Phone Triston Zhao CP Unavailable Allergies, Adverse Reactions, Alerts Substance Reaction Event Type N.K.D.A. Info Not Available Non Drug Allergy Problems Problem Type Condition ICD-9 Code Onset Dates Condition Status Problem Abdominal cramping 789.00 Active Problem Perennial allergic rhinitis with seasonal variation 477.9 Active Problem Diarrhea 787.91 Active Assessment Abdominal cramping 789.00 Active Assessment Weight Loss 783.21 Active Assessment Diarrhea 787.91 Active Medications Medication Code System Code Instructions Start Date End Date Status Dosage Levsin NDC 1856 0.125 mg orally q 4 hours prn Jun 28, 2014 Active 1 tab(s) Cipro NDC 112 500 mg orally every 12 hours Jun 28, 2014 Active 1 tab(s ) Procedures Procedure Coding System Code Date Comprehensive Metabolic Panel CPT-4 08522 Jun 28, 2014 Assay of Total Thyroxine CPT-4 28809 Jun 28, 2014 Automated Hemogram-CBC w/Diff CPT-4 62193 Jun 28, 2014 Urinalysis, Auto, w/o Scope CPT-4 87849 Jun 28, 2014 Assay Thyroid Stim Hormone CPT-4 45318 Jun 28, 2014 Office/Outpatient Visit-Est CPT-4 63208 Jun 28, 2014 Helicobactor Pylori CPT-4 87640 Jun 28, 2014 Vital Signs Date/Time: Jun 28, 2014 Temperature 97.4 F Blood Pressure Diastolic 72 mm Hg Blood Pressure Systolic 120 mm Hg BMI 24.37 Index Height 5'8" in Weight 160.3 lbs Results Name Result Date Reference Range Unit T4 Summary Purpose eClinicalWorks Submission
--- OUTSIDE RECORDS SUMMARY | 2018-08-09 06:11 | XMS REPORT ---
Author Author Triston Zhao Organization [employer] Address Unknown Phone Unavailable Care Team Providers Care Sports Marketer Name Role Phone Triston Zhao CP Unavailable Allergies No Known Allergies Problems Problem Type Condition Code Onset Dates Condition Status Problem Abdominal cramping 789.00 Active Problem Perennial allergic rhinitis with seasonal variation 477.9 Active Problem Diarrhea 787.91 Active Assessment DESENSITIZA TO ALLERGENS V07.1 Active Medications No Known Medications Procedures Procedure Coding System Code Date Allergy-Inj Mult CPT-4 05694 December 29, 2014 Results No Known Results Summary Purpose eClinicalWorks Submission
--- OUTSIDE RECORDS SUMMARY | 2018-08-09 06:11 | XMS REPORT ---
Author Author Triston Zhao [facility] eClinicalWorks Address Unknown Phone Unavailable Care Team Providers Care Transmission Systems Operator Name Role Phone Triston Zhao CP Unavailable Allergies, Adverse Reactions, Alerts Substance Reaction Event Type N.K.D.A. Info Not Available Non Drug Allergy Problems Problem Type Condition ICD-9 Code Onset Dates Condition Status Problem Abdominal cramping 789.00 Active Problem Perennial allergic rhinitis with seasonal variation 477.9 Active Problem Diarrhea 787.91 Active Assessment Abdominal cramping 789.00 Active Assessment Diarrhea 787.91 Active Medications Medication Code System Code Instructions Start Date End Date Status Dosage Levsin NDC 1856 0.125 mg orally q 4 hours prn Jun 28, 2014 Active 1 tab(s) Cipro NDC 112 500 mg orally every 12 hours Jun 28, 2014 Active 1 tab(s ) Procedures Procedure Coding System Code Date Office/Outpatient Visit-Est CPT-4 27045 Jul 05, 2014 Vital Signs Date/Time: Jul 05, 2014 Temperature 96.9 F Blood Pressure Diastolic 72 mm Hg Blood Pressure Systolic 114 mm Hg BMI 23.98 Index Height 68 in Weight 157.7 lbs Results No Known Results Summary Purpose eClinicalWorks Submission
--- OUTSIDE RECORDS SUMMARY | 2018-08-09 06:11 | XMS REPORT ---
Author Author Triston Zhao Organization [employer] Address Unknown Phone Unavailable Care Team Providers Care Filling Machine Set Up Mechanic Name Role Phone Triston Zhao CP Unavailable Allergies No Known Allergies Problems Problem Type Condition ICD-9 Code Onset Dates Condition Status Problem Abdominal cramping 789.00 Active Problem Perennial allergic rhinitis with seasonal variation 477.9 Active Problem Diarrhea 787.91 Active Assessment Perennial allergic rhinitis with seasonal variation 477.9 Active Medications No Known Medications Procedures Procedure Coding System Code Date Allergy-Inj Mult CPT-4 07578 November 03, 2014 Results No Known Results Summary Purpose eClinicalWorks Submission
--- OUTSIDE RECORDS SUMMARY | 2018-08-09 06:11 | XMS REPORT ---
Author Author Triston Zhao Organization [employer] Address Unknown Phone Unavailable Care Team Providers Care Map Colorer Name Role Phone Triston Zhao CP Unavailable Allergies No Known Allergies Problems Problem Type Condition ICD-9 Code Onset Dates Condition Status Problem Abdominal cramping 789.00 Active Problem Perennial allergic rhinitis with seasonal variation 477.9 Active Problem Diarrhea 787.91 Active Assessment Perennial allergic rhinitis with seasonal variation 477.9 Active Medications No Known Medications Procedures Procedure Coding System Code Date Allergy-Inj Mult CPT-4 88095 March 02, 2015 Results No Known Results Summary Purpose eClinicalWorks Submission
--- OUTSIDE RECORDS SUMMARY | 2018-08-09 06:11 | XMS REPORT ---
Author Author Triston Zhao Organization [employer] Address Unknown Phone Unavailable Care Team Providers Care Forensic Specialist Name Role Phone Triston Zhao CP Unavailable Allergies No Known Allergies Problems Problem Type Condition ICD-9 Code Onset Dates Condition Status Problem Abdominal cramping 789.00 Active Problem Perennial allergic rhinitis with seasonal variation 477.9 Active Problem Diarrhea 787.91 Active Assessment Perennial allergic rhinitis with seasonal variation 477.9 Active Medications No Known Medications Procedures Procedure Coding System Code Date Office/Outpatient Visit-Est CPT-4 88930 Jul 17, 2014 Allergy-Inj Mult CPT-4 09752 Jul 17, 2014 Results No Known Results Summary Purpose eClinicalWorks Submission
--- OUTSIDE RECORDS SUMMARY | 2018-08-09 06:11 | XMS REPORT ---
Author Triston Robles [facility] [employer]ClinicalWorks Address Unknown Phone Unavailable Care Team Providers Care Team Truck Driver Name Role Phone Triston Zhao CP Unavailable Allergies No Known Allergies Problems Problem Type Condition ICD-9 Code Onset Dates Condition Status Problem Abdominal cramping 789.00 Active Problem Perennial allergic rhinitis with seasonal variation 477.9 Active Problem Diarrhea 787.91 Active Medications No Known Medications Results No Known Results Summary Purpose eClinicalWorks Submission
--- OUTSIDE RECORDS SUMMARY | 2018-08-09 06:11 | XMS REPORT ---
Author Author Triston Zhao Organization [employer] Address Unknown Phone Unavailable Care Team Providers Care Field Service Specialist Name Role Phone Triston Zhao CP Unavailable Allergies No Known Allergies Problems Problem Type Condition ICD-9 Code Onset Dates Condition Status Problem Abdominal cramping 789.00 Active Problem Perennial allergic rhinitis with seasonal variation 477.9 Active Problem Diarrhea 787.91 Active Assessment DESENSITIZA TO ALLERGENS V07.1 Active Medications No Known Medications Procedures Procedure Coding System Code Date Allergy-Inj Mult CPT-4 11524 Mar 20, 2015 Results No Known Results Summary Purpose eClinicalWorks Submission
--- OUTSIDE RECORDS SUMMARY | 2018-08-09 06:11 | XMS REPORT ---
Author Author Triston Zhao Organization [employer] Address Unknown Phone Unavailable Care Team Providers Care Scientist Engineer Name Role Phone Triston Zhao CP Unavailable Allergies No Known Allergies Problems Problem Type Condition ICD-9 Code Onset Dates Condition Status Problem Abdominal cramping 789.00 Active Problem Perennial allergic rhinitis with seasonal variation 477.9 Active Problem Diarrhea 787.91 Active Assessment Perennial allergic rhinitis with seasonal variation 477.9 Active Medications No Known Medications Procedures Procedure Coding System Code Date Allergy-Inj Mult CPT-4 18892 January 10, 2015 Results No Known Results Summary Purpose eClinicalWorks Submission
--- OUTSIDE RECORDS SUMMARY | 2018-08-09 06:11 | XMS REPORT ---
Author Author Ame Samuels [facility] eClinicalWorks Address Unknown Phone Unavailable Care Team Providers Care Precision Inspector Name Role Phone Ame Samuels CP Unavailable Allergies No Known Allergies Problems Problem Type Condition ICD-9 Code Onset Dates Condition Status Problem Abdominal cramping 789.00 Active Problem Perennial allergic rhinitis with seasonal variation 477.9 Active Problem Diarrhea 787.91 Active Assessment Perennial allergic rhinitis with seasonal variation 477.9 Active Medications No Known Medications Procedures Procedure Coding System Code Date Allergy-Inj Mult CPT-4 87789 Sep 11, 2014 Results No Known Results Summary Purpose eClinicalWorks Submission
--- OUTSIDE RECORDS SUMMARY | 2018-08-09 06:11 | XMS REPORT ---
Author Triston Robles [facility] eClinicalWorks Address Unknown Phone Unavailable Care Team Providers Care Manager Financial Reporting Name Role Phone Triston Zhao CP Unavailable Allergies No Known Allergies Problems Problem Type Condition ICD-9 Code Onset Dates Condition Status Problem Abdominal cramping 789.00 Active Problem Perennial allergic rhinitis with seasonal variation 477.9 Active Problem Diarrhea 787.91 Active Medications No Known Medications Results No Known Results Summary Purpose eClinicalWorks Submission
--- OUTSIDE RECORDS SUMMARY | 2018-08-09 06:11 | XMS REPORT ---
Author Author Triston Zhao Organization [employer] Address Unknown Phone Unavailable Care Team Providers Care Chief Resource Officer Name Role Phone Triston Zhao CP Unavailable Allergies No Known Allergies Problems Problem Type Condition ICD-9 Code Onset Dates Condition Status Problem Abdominal cramping 789.00 Active Problem Perennial allergic rhinitis with seasonal variation 477.9 Active Problem Diarrhea 787.91 Active Assessment Perennial allergic rhinitis with seasonal variation 477.9 Active Medications No Known Medications Results No Known Results Summary Purpose eClinicalWorks Submission
--- OUTSIDE RECORDS SUMMARY | 2018-08-09 06:11 | XMS REPORT ---
Author Author Triston Zhao Organization [employer] Address Unknown Phone Unavailable Care Team Providers Care Academic Dean Name Role Phone Triston Zhao CP Unavailable Allergies No Known Allergies Problems Problem Type Condition Code Onset Dates Condition Status Problem Abdominal cramping 789.00 Active Problem Perennial allergic rhinitis with seasonal variation 477.9 Active Problem Diarrhea 787.91 Active Assessment DESENSITIZA TO ALLERGENS V07.1 Active Medications No Known Medications Procedures Procedure Coding System Code Date Allergy-Inj Mult CPT-4 30884 December 15, 2014 Results No Known Results Summary Purpose eClinicalWorks Submission
--- OUTSIDE RECORDS SUMMARY | 2018-08-09 06:11 | XMS REPORT ---
Author Author Triston Zhao Organization [employer]Clinical[employer] Address Unknown Phone Unavailable Care Team Providers Care School Services Officer Name Role Phone Triston Zhao CP Unavailable Allergies No Known Allergies Problems Problem Type Condition Code Onset Dates Condition Status Problem Abdominal cramping 789.00 Active Problem Perennial allergic rhinitis with seasonal variation 477.9 Active Problem Diarrhea 787.91 Active Assessment DESENSITIZA TO ALLERGENS V07.1 Active Medications No Known Medications Procedures Procedure Coding System Code Date Allergy-Inj Mult CPT-4 59714 December 04, 2014 Results No Known Results Summary Purpose eClinicalWorks Submission
--- OUTSIDE RECORDS SUMMARY | 2018-08-09 06:12 | XMS REPORT ---
Author Author Triston Zhao [facility] eClinicalWorks Address Unknown Phone Unavailable Care Team Providers Care Old Testament Professor Name Role Phone Triston Zhao CP Unavailable Allergies No Known Allergies Problems Problem Type Condition ICD-9 Code Onset Dates Condition Status Assessment Perennial allergic rhinitis with seasonal variation 477.9 Active Problem Perennial allergic rhinitis with seasonal variation 477.9 Active Medications No Known Medications Procedures Procedure Coding System Code Date Allergy-Inj Mult CPT-4 77929 May 03, 2014 Results No Known Results Immunizations Vaccine Administration Date Allergy-Inj Mult May 03, 2014 Summary Purpose eClinicalWorks Submission
--- OUTSIDE RECORDS SUMMARY | 2018-08-09 06:12 | XMS REPORT ---
Author Author Triston Zhao Organization [employer] Address Unknown Phone Unavailable Care Team Providers Care Curve Saw Operator Name Role Phone Triston Zhao CP Unavailable Allergies No Known Allergies Problems Problem Type Condition ICD-9 Code Onset Dates Condition Status Assessment Perennial allergic rhinitis with seasonal variation 477.9 Active Problem Perennial allergic rhinitis with seasonal variation 477.9 Active Medications No Known Medications Results No Known Results Summary Purpose eClinicalWorks Submission
--- OUTSIDE RECORDS SUMMARY | 2018-08-09 06:12 | XMS REPORT ---
Author Author Triston Zhao Organization [employer] Address Unknown Phone Unavailable Care Team Providers Care Shipping Helper Name Role Phone Triston Zhao CP Unavailable Allergies No Known Allergies Problems Problem Type Condition ICD-9 Code Onset Dates Condition Status Problem Abdominal cramping 789.00 Active Problem Perennial allergic rhinitis with seasonal variation 477.9 Active Problem Diarrhea 787.91 Active Medications Medication Code System Code Instructions Start Date End Date Status Dosage amoxicillin [facility] 49554 500 mg orally 3 times a day November 03, 2014 1 cap(s) Results No Known Results Summary Purpose eClinicalWorks Submission
--- OUTSIDE RECORDS SUMMARY | 2018-08-09 06:12 | XMS REPORT ---
Author Author Triston Zhao Organization [employer] Address Unknown Phone Unavailable Care Team Providers Care Advertising Associate Name Role Phone Triston Zhao CP Unavailable Allergies No Known Allergies Problems Problem Type Condition ICD-9 Code Onset Dates Condition Status Problem Abdominal cramping 789.00 Active Problem Perennial allergic rhinitis with seasonal variation 477.9 Active Problem Diarrhea 787.91 Active Assessment Perennial allergic rhinitis with seasonal variation 477.9 Active Medications No Known Medications Procedures Procedure Coding System Code Date Allergy-Inj Mult CPT-4 97006 Mar 29, 2015 Results No Known Results Summary Purpose [employer] Submission
--- OUTSIDE RECORDS SUMMARY | 2018-08-09 06:12 | XMS REPORT ---
Author Author Triston Zhao Organization [employer] Address Unknown Phone Unavailable Care Team Providers Care Diesel Retrofit Installer Name Role Phone Triston Zhao CP Unavailable Allergies No Known Allergies Problems Problem Type Condition ICD-9 Code Onset Dates Condition Status Problem Abdominal cramping 789.00 Active Problem Perennial allergic rhinitis with seasonal variation 477.9 Active Problem Diarrhea 787.91 Active Assessment Perennial allergic rhinitis with seasonal variation 477.9 Active Medications No Known Medications Procedures Procedure Coding System Code Date Allergy-Inj Mult CPT-4 23287 Sep 18, 2014 Results No Known Results Summary Purpose [employer] Submission
--- OUTSIDE RECORDS SUMMARY | 2018-08-09 06:12 | XMS REPORT ---
Author Author Triston Zhao Organization [employer] Address Unknown Phone Unavailable Care Team Providers Care Pharmacy Sales Representative Name Role Phone Triston Zhao CP Unavailable Allergies No Known Allergies Problems Problem Type Condition ICD-9 Code Onset Dates Condition Status Problem Abdominal cramping 789.00 Active Problem Perennial allergic rhinitis with seasonal variation 477.9 Active Problem Diarrhea 787.91 Active Assessment DESENSITIZA TO ALLERGENS V07.1 Active Medications No Known Medications Procedures Procedure Coding System Code Date Allergy-Inj Mult CPT-4 97860 October 12, 2014 Results No Known Results Summary Purpose [employer] Submission
--- OUTSIDE RECORDS SUMMARY | 2018-08-09 06:12 | XMS REPORT ---
Author Author Triston Zhao Organization [employer] Address Unknown Phone Unavailable Care Team Providers Care Cloth Doffer Name Role Phone Triston Zhao CP Unavailable Allergies No Known Allergies Problems Problem Type Condition Code Onset Dates Condition Status Problem Abdominal cramping 789.00 Active Problem Perennial allergic rhinitis with seasonal variation 477.9 Active Problem Diarrhea 787.91 Active Assessment DESENSITIZA TO ALLERGENS V07.1 Active Medications No Known Medications Procedures Procedure Coding System Code Date Allergy-Inj Mult CPT-4 88261 November 15, 2014 Results No Known Results Summary Purpose [employer] Submission
--- OUTSIDE RECORDS SUMMARY | 2018-08-09 06:12 | XMS REPORT ---
Author Author Triston Zhao [facility] [employer] Address Unknown Phone Unavailable Care Team Providers Care Dog Sitter Name Role Phone Triston Zhao CP Unavailable Allergies No Known Allergies Problems Problem Type Condition ICD-9 Code Onset Dates Condition Status Assessment Perennial allergic rhinitis with seasonal variation 477.9 Active Problem Perennial allergic rhinitis with seasonal variation 477.9 Active Medications No Known Medications Procedures Procedure Coding System Code Date Allergy-Inj Mult CPT-4 51956 Jun 14, 2014 Results No Known Results Summary Purpose [employer] Submission
--- OUTSIDE RECORDS SUMMARY | 2018-08-09 06:13 | XMS REPORT ---
Author Author Triston Zhao [facility] e[employer] Address Unknown Phone Unavailable Care Team Providers Care Residential Property Tax Appraiser Name Role Phone Triston Zhao CP Unavailable Allergies No Known Allergies Problems Problem Type Condition ICD-9 Code Onset Dates Condition Status Assessment Perennial allergic rhinitis with seasonal variation 477.9 Active Problem Perennial allergic rhinitis with seasonal variation 477.9 Active Medications No Known Medications Procedures Procedure Coding System Code Date Allergy-Inj Mult CPT-4 76758 Jun 02, 2014 Results No Known Results Summary Purpose [employer] Submission
--- OUTSIDE RECORDS SUMMARY | 2018-08-09 06:13 | XMS REPORT ---
Author Triston Robles [facility] [employer] Address Unknown Phone Unavailable Care Team Providers Care Solidworks Designer Name Role Phone Triston Zhao CP Unavailable Allergies No Known Allergies Problems Problem Type Condition ICD-9 Code Onset Dates Condition Status Problem Perennial allergic rhinitis with seasonal variation 477.9 Active Medications No Known Medications Results No Known Results Summary Purpose [employer] Submission
--- OUTSIDE RECORDS SUMMARY | 2018-08-09 06:13 | XMS REPORT | Continuity of Care Document ---
Author Author [facility] Organization [facility] Address Unknown Phone Unavailable Allergies There is no data. Medications There is no data. Problems Date Dx Coded Attending Type Code Diagnosis Diagnosed By 07/30/2015 DIVYA SPRAGUE Ot E04.9 08/14/2015 DIVYA SPRAGUE Ot E04.9 09/18/2016 DIVYA SPRAGUE Ot E04.9 NONTOXIC GOITER, UNSPECIFIED Procedures There is no data. Results Test Result Range RPR (MONITOR) W/REFL TITER - 04/29/18 18:56 RPR (MONITOR) W/REFL TITER NON-REACTIVE NON-REACTIVE HIV 1/2 ANTIGEN AND AB 4th generation with reflexes - 04/29/18 18:56 Encounters ACCT No. Visit Date/Time Discharge Status Pt. Type Provider Facility Loc./Unit Complaint [id number] 07/26/2015 10:59:00 07/26/2015 23:59:59 CLS Outpatient DIVYA SPRAGUE [facility] RAD ENLARGED THYROID [id number] 08/30/2014 07:42:00 08/30/2014 23:59:59 CLS Outpatient Meredith Flores [facility] [address] [id number] 04/29/2018 17:45:00 Document Registration
--- OUTSIDE RECORDS SUMMARY | 2018-08-09 06:13 | XMS REPORT ---
Author Author Triston Zhao [facility] e[employer] Address Unknown Phone Unavailable Care Team Providers Care Call Center Supervisor Name Role Phone Triston Zhao CP Unavailable Allergies No Known Allergies Problems Problem Type Condition ICD-9 Code Onset Dates Condition Status Assessment DESENSITIZA TO ALLERGENS V07.1 Active Problem Perennial allergic rhinitis with seasonal variation 477.9 Active Medications No Known Medications Procedures Procedure Coding System Code Date Allergy-Inj Mult CPT-4 57619 Jun 07, 2014 Results No Known Results Summary Purpose [employer] Submission
--- OUTSIDE RECORDS SUMMARY | 2018-08-09 06:13 | XMS REPORT ---
Author Triston Robles [facility] [employer] Address Unknown Phone Unavailable Care Team Providers Care Chemistry Specialist Name Role Phone Triston Zhao CP Unavailable Allergies No Known Allergies Problems Problem Type Condition ICD-9 Code Onset Dates Condition Status Problem Abdominal cramping 789.00 Active Problem Perennial allergic rhinitis with seasonal variation 477.9 Active Problem Diarrhea 787.91 Active Medications No Known Medications Results No Known Results Summary Purpose [employer] Submission
--- OUTSIDE RECORDS SUMMARY | 2018-08-09 06:13 | XMS REPORT ---
Author Author Triston Zhao Organization [employer] Address Unknown Phone Unavailable Care Team Providers Care Help Desk Consultant Name Role Phone Triston Zhao CP Unavailable Allergies, Adverse Reactions, Alerts Substance Reaction Event Type N.K.D.A. Info Not Available Non Drug Allergy Problems Problem Type Condition ICD-9 Code Onset Dates Condition Status Assessment Perennial allergic rhinitis with seasonal variation 477.9 Active Problem Perennial allergic rhinitis with seasonal variation 477.9 Active Medications No Known Medications Procedures Procedure Coding System Code Date Office/Outpatient Visit-New CPT-4 15529 Mar 24, 2014 Vital Signs Date/Time: Mar 24, 2014 Temperature 98.6 F Blood Pressure Diastolic 70 mm Hg Blood Pressure Systolic 100 mm Hg Weight 166.7 lbs Results No Known Results Summary Purpose [employer] Submission
--- OUTSIDE RECORDS SUMMARY | 2018-08-09 06:13 | XMS REPORT ---
Author Author Triston Zhao Organization [employer] Address Unknown Phone Unavailable Care Team Providers Care Graduate Recruiter Name Role Phone Triston Zhao CP Unavailable Allergies No Known Allergies Problems Problem Type Condition ICD-9 Code Onset Dates Condition Status Problem Abdominal cramping 789.00 Active Problem Perennial allergic rhinitis with seasonal variation 477.9 Active Problem Diarrhea 787.91 Active Assessment Perennial allergic rhinitis with seasonal variation 477.9 Active Medications No Known Medications Procedures Procedure Coding System Code Date Allergy-Inj Mult CPT-4 51015 Jun 30, 2014 Results No Known Results Summary Purpose [employer] Submission
--- OUTSIDE RECORDS SUMMARY | 2018-08-09 06:13 | XMS REPORT ---
Author Author Triston Zhao Organization [employer] Address Unknown Phone Unavailable Care Team Providers Care Part Time Name Role Phone Triston Zhao CP Unavailable Allergies No Known Allergies Problems No Known Problems Medications No Known Medications Results No Known Results Summary Purpose [employer]Clinical[employer] Submission
--- OUTSIDE RECORDS SUMMARY | 2018-08-09 06:13 | XMS REPORT ---
Author Author Triston Zhao Organization [employer] Address Unknown Phone Unavailable Care Team Providers Care Activity Specialist Name Role Phone Triston Zhao CP Unavailable Allergies No Known Allergies Problems Problem Type Condition ICD-9 Code Onset Dates Condition Status Assessment Perennial allergic rhinitis with seasonal variation 477.9 Active Problem Perennial allergic rhinitis with seasonal variation 477.9 Active Medications No Known Medications Procedures Procedure Coding System Code Date Office/Outpatient Visit-Est CPT-4 84642 Mar 31, 2014 Results No Known Results Immunizations Vaccine Administration Date Allergy-Inj Mult Mar 31, 2014 Summary Purpose [employer]ClinicalWorks Submission
--- OUTSIDE RECORDS SUMMARY | 2018-08-09 06:13 | XMS REPORT ---
Author Author Triston Zhao Organization [employer] Address Unknown Phone Unavailable Care Team Providers Care Vtc Technician Name Role Phone Triston Zhao CP Unavailable Allergies No Known Allergies Problems Problem Type Condition ICD-9 Code Onset Dates Condition Status Problem Abdominal cramping 789.00 Active Problem Perennial allergic rhinitis with seasonal variation 477.9 Active Problem Diarrhea 787.91 Active Assessment Perennial allergic rhinitis with seasonal variation 477.9 Active Medications No Known Medications Procedures Procedure Coding System Code Date Office/Outpatient Visit-Est CPT-4 23726 Jul 10, 2014 Results No Known Results Summary Purpose [employer]ClinicalWorks Submission
[2018-08-09 06:15] VITALS: BP 117/87
[2018-08-09] MEDS ORDERED: BUPIVACAINE 0.25% 30 ML (SENSORCAINE) VIAL ONE (06:30)
[2018-08-09] MEDS ORDERED: LACTATED RINGERS 1,000 ML IV PRN (06:36)
[2018-08-09] MEDS: LACTATED RINGERS 1,000 ML IV PRN ×2 (06:42→08:06)
[2018-08-09] MEDS ORDERED: MIDAZOLAM 2 MG/2 ML (VERSED) VIAL IV ONE (06:45)
[2018-08-09 06:51] LABS: BASOPHILS % (AUTO) 0 % (0-10); EOSINOPHILS # (AUTO) 0.5 10^3/uL (0.0-0.3); EOSINOPHILS % (AUTO) 9 % (0-10); HEMATOCRIT 36 % (35-52); HEMOGLOBIN 12.6 G/DL (11.5-16.0); LYMPHOCYTES # (AUTO) 2.3 X 10^3 (1.0-4.0); LYMPHOCYTES % (AUTO) 40 % (12-44); MEAN CORPUSCULAR HEMOGLOBIN 28 PG (25-34); MEAN CORPUSCULAR HGB CONC 35 G/DL (32-36); MEAN CORPUSCULAR VOLUME 81 FL (80-99); MEAN PLATELET VOLUME 10.4 FL (7.4-10.4); MONOCYTES # (AUTO) 0.6 X 10^3 (0.0-1.0); MONOCYTES % (AUTO) 10 % (0-12); NEUTROPHILS # (AUTO) 2.3 X 10^3 (1.8-7.8); NEUTROPHILS % (AUTO) 41 % (42-75); PLATELET COUNT 259 10^3/uL (130-400); RED BLOOD COUNT 4.49 10^6/uL (4.35-5.85); RED CELL DISTRIBUTION WIDTH 13.8 % (10.0-14.5); WHITE BLOOD COUNT 5.6 10^3/uL (4.3-11.0)
[2018-08-09] MEDS ORDERED: MIDAZOLAM 2 MG/2 ML (VERSED) VIAL ONE ×2 (06:54→07:01)
[2018-08-09] MEDS ORDERED: NEOSTIGMINE 1 MG/ML 5 ML SYRINGE ONE (07:00)
[2018-08-09] MEDS ORDERED: ROCURONIUM 10 MG/ML 5 ML SYRINGE IV ONE (07:00)
[2018-08-09] MEDS ORDERED: SEVOFLURANE (ULTANE) 15 ML INHAL SOLN ONE (07:00)
[2018-08-09] MEDS ORDERED: ONDANSETRON 4 MG/2 ML (SDV) Z0FRAN ONE (07:00)
[2018-08-09] MEDS ORDERED: GLYCOPYRROLATE 0.2 MG/ML (ROBINUL) 2 ML VIAL ONE (07:00)
[2018-08-09] MEDS ORDERED: proPOfol 200 MG/20 ML (DIPRIVAN) VIAL IV ONE (07:00)
[2018-08-09] MEDS ORDERED: DEXAMETHASONE 10 MG/ML (DECADRON) 1 ML VIAL ONE (07:00)
[2018-08-09] MEDS ORDERED: LIDOCAINE PF 2% 5 ML (XYLOCAINE) VIAL ONE (07:00)
[2018-08-09] MEDS ORDERED: fentaNYL INJECTION 100 MCG/2 ML AMP ONE ×2 (07:01→07:45)
--- NOTE | 2018-08-09 07:03 | Progress Note-Pre Operative ---
Pre-Operative Progress Note H&P Reviewed The H&P was reviewed, patient examined and no changes noted. Date Seen by Provider: Aug 09, 2018 Time Seen by Provider: 06:55 Date H&P Reviewed: Aug 09, 2018 Time H&P Reviewed: 07:00 Pre-Operative Diagnosis: CPP, Umbilical pain CHRISTINE PEREZ DO Aug 09, 2018 7:03 am
[2018-08-09] MEDS ORDERED: HYDROmorphone 2 MG/ML VIAL (DILAUDID) ONE (08:27)
[2018-08-09] MEDS ORDERED: D5 LR IV SOLUTION 1,000 ML IV SCH (08:35)
[2018-08-09] MEDS ORDERED: KETOROLAC 30 MG/ML VIAL ONE (08:36)
--- NOTE | 2018-08-09 08:37 | Discharge Inst-Women's Service ---
Discharge Inst-Women's Serv Depart Medication/Instructions New, Converted or Re-Newed RX: RX on Chart Consults/Follow Up Additional Follow Up: Yes Orders/Referrals Dr. Haas in 2 weeks Activity Activity: Activity as Tolerated Driving Instructions: You May Drive (do not drive while taking hydrocodone) NO SMOKING: NO SMOKING Diet Discharge Diet: No Restrictions Symptoms to Report to : Bleeding Excessive, Urine Color Change, Fever Over 101 Degrees F, Vaginal Bleeding Increase, Questions/Concerns For Any Problems or Questions: Contact Your Physician Skin/Wound Care Infection Signs and Symptoms: Increased Redness, Foul Odor of Wound, Increased Drainage, Skin Itchy or Has a Rash, Increased Swelling, Temperature Above 101 F Operative Area Clean and Dry: Keep Incision Clean/Dry Stitches/[place]/Dermabond: Dermabond, Care of Stitches Bathing Instructions: CHRISTINE Whittington DO Aug 09, 2018 08:37
[2018-08-09] MEDS ORDERED: ACHD5005 PO (08:38)
[2018-08-09] MEDS ORDERED: IBUP-1773 PO (08:38)
[2018-08-09] MEDS ORDERED: KETOROLAC 30 MG/ML VIAL IVP ONE (08:45)
[2018-08-09] MEDS ORDERED: HYDROmorphone 2 MG/ML VIAL (DILAUDID) IV ONE (08:45)
[2018-08-09] MEDS ORDERED: HYDROcodone/APAP 5 MG/325 MG (LORTAB) TAB PO PRN (08:45)
[2018-08-09] MEDS ORDERED: morphine INJ 10 MG/ML 1ML (SYR OR VIAL) IVP ONE (08:45)
[2018-08-09] MEDS ORDERED: ONDANSETRON 4 MG/2 ML (SDV) Z0FRAN IVP PRN ×2 (08:45)
[2018-08-09 09:20] VITALS: BP 107/79
[2018-08-09 09:50] VITALS: BP 108/75
[2018-08-09 10:20] VITALS: BP 102/79
--- NOTE | 2018-08-09 13:08 | OPERATIVE REPORT ---
DATE OF SERVICE: PREOPERATIVE DIAGNOSIS: A 28-year-old female with umbilical pain shooting down into the pelvis causing chronic pelvic pain. POSTOPERATIVE DIAGNOSES: A 28-year-old female with umbilical pain shooting down into the pelvis causing chronic pelvic pain plus extensive endometriosis. PROCEDURES: Laparoscopic cauterization of endometriosis implant, excision of endometriosis implant and lysis of adhesions. SURGEON: Christine Perez DO. ANESTHESIA: General endotracheal. ESTIMATED BLOOD LOSS: Minimal. URINE OUTPUT: 50 mL, clear at the end of procedure. FLUIDS: 800 mL lactated Ringer solution. FINDINGS: Grossly normal appearing upper abdominal anatomy with extensive adhesions of the pelvis including vesicouterine peritoneum adhesions, bilateral ovarian fossa, endometriosis implants as well as endometriosis implants of the posterior cul-de-sac and bilateral uterosacral ligaments. SPECIMENS SENT: Anterior vesicouterine implant. INDICATIONS: This is a 28-year-old female patient that was seen in my office and in an acute fashion, she was added on to my schedule due to a significant amount of pain she was having. She reports that for the past three to six months, she has had a significantly worsening pelvic pain that comes and goes throughout the month; however, it does never go away. She reports that it started in her umbilicus and has consistently gotten worse; this pain has gone on as time has gone on. She reports that she has tried oral contraceptive pills to attempt to alleviate the pain and this has not helped. She has also seen a high school auto repair teacher and an internal wholesaler, both of which imaging studies were ordered and were found to be negative. She also had upper and lower GI evaluation, which was found to be negative as well. Due to the ongoing pain and the patient exhausting all of the resources, she is wishing to proceed with diagnostic laparoscopy as she feels her underlying etiology may be endometriosis. Risks of the procedure were discussed with the patient in detail including risk of bleeding, infection, damage to surrounding structures including, but not limited to bowel, bladder, ureter and kidneys. Postoperative expectations as well as recovery time frame and postoperative complications were all covered with the patient. After all of her questions were answered with her mother present, consent was obtained and the patient was taken to the operating room. OPERATIVE REPORT IN DETAIL: Once in the operating room, general anesthesia was found be adequate, she was placed in dorsal lithotomy position, prepped and draped in normal sterile fashion. A timeout was performed. A Awad catheter was placed using sterile technique. A weighted speculum was inserted into the patient's vagina. A right angle retractor was utilized. Cervix was grasped at 12 o'clock position using a long Allis clamp. I then gently sounded the uterine cavity and depth was found to be 8 cm. I then gently dilated the cervix using Hegar dilators to maximum dilatation of approximately 4 mm at which point I was easily able to place a Kronner uterine manipulator without difficulty deploying the balloon in the endometrial cavity, I removed all the other instruments from the patient's vagina. We performed change of gloves and took my attention to the abdomen where infraumbilically I infiltrated this area using 0.25% Marcaine and made a 5 mm incision and directed a Veress needle through the incision until intraperitoneal placement was confirmed using a saline drop test. I then proceeded with insufflation using CO2 gas and opening pressure of 3 mmHg was noted. I proceeded to maximum pressure of 15 mmHg, at which point I removed the Veress needle and introduced a 5 mm blunt trocar through the incision until intraperitoneal placement was confirmed using the laparoscope. I then had the patient placed in steep Trendelenburg and I was able to find all of my anatomy findings as discussed in my findings above. I then placed two separate trocars, one in the left lower quadrant and one suprapubically. These were both placed in a similar fashion by infiltrating the skin using 0.25% Marcaine, making a 5 mm incision and directing the trocar through the incision. Once these were both placed under direct visualization of the laparoscope, I was able to perform the following dissection. I first excised a large implant of the vesicouterine peritoneum on the anterior abdominal wall that is adhesing the bladder and causing significant pull in a caudad fashion of the anterior peritoneum. Once this was excised, I released the tension off the right-sided adhesions as well, which allows the vesicouterine peritoneum to sit in the appropriate anatomically correct fashion. Both of these areas were cauterized as well where there was endometriosis that is grossly noticeable. Once the vesicouterine peritoneum was addressed, I then took my attention to the ovaries where I lifted them up in an ovarian fossa, bilaterally find globular implants of endometriosis, which were cauterized bilaterally as well. Care was taken to stay away from the ureters and the ureters were identified during my cauterization process. I then took my attention to the posterior cul-de-sac where more of endometriosis was noted on the right uterosacral ligament; both uterosacral ligaments were found to be involved; the most involvement is noted to be on the right. I extensively cauterized all of this endometrial tissue as well hoping for a good postoperative pain relief after which there was no active bleeding noted from any of my dissection planes. I had the patient taken out of the steep Trendelenburg after the appendix and gallbladder were both visualized and found to be normal on gross inspection. The left lower quadrant trocar was removed under direct visualization of the laparoscope. Insufflation was released through the other two trocars, which were suprapubic and infraumbilical. I then used the infraumbilical trocar to introduce 10 mL of 0.25% Marcaine for postoperative pain management and removed both of these trocars as well once all the gas was attempted to be removed. I then reapproximated the skin using a 4-0 Monocryl in an interrupted simple fashion. I then covered the incisions using Band-Aids. Kronner uterine manipulator was removed. Awad catheter was removed. The patient tolerated the procedure well and was taken to the recovery area in stable condition. Lap and sponge counts were correct at the end of the procedure. Instrument counts were correct as well. Job ID: [id number] DocumentID: [id number] Dictated Date: 08/09/2018 09:20:16 Vocal Music Teacher Date: 08/09/2018 13:07:50 Dictated By: CHRISTINE PEREZ DO
--- NOTE | 2018-08-09 13:12 | Anesthesia-General Post-Op ---
General Patient Condition Mental Status/LOC: Same as Preop Cardiovascular: Satisfactory Nausea/Vomiting: Absent Respiratory: Satisfactory Pain: Controlled Complications: Absent Post Op Complications Complications None Follow Up Care/Instructions Patient Instructions None needed. Anesthesia/Patient Condition Patient Condition Patient is doing well, no complaints, stable vital signs, no apparent adverse anesthesia problems. No complications reported per nursing. LIZ SANTIAGO CRNA Aug 09, 2018 13:12
== END 2018-08-09 11:03 | disposition home or self-care (01) ==
LOC: SDC 06:05
PROVIDERS: ATTEND Obstetrics & Gynecology
DX: N80.3 Endometriosis of pelvic peritoneum (principal); N80.1 Endometriosis of ovary; N80.0 Endometriosis of uterus; Z11.2 Encounter for screening for other bacterial diseases
CPT/HCPCS: 36415; 84703; 85025; 86850; 86900; 86901; 87081; 94664

== ENCOUNTER 2018-08-12 10:53 | Emergency (ER) | payer BC | END 2018-08-12 13:54 | disposition home or self-care (01) | LOC: ER 10:53 ==

== ENCOUNTER → 2019-08-15 | Outpatient (CLI) | payer BC ==
[~2019-08-15] MED LIST changes: +ACHD5005 PO; +IBUP-1773 PO
--- NOTE | 2019-08-15 15:41 | Diagnostic Imaging Report ---
PROCEDURE: US Non-OB pelvis comp/trans. TECHNIQUE: Multiple real-time grayscale images were obtained of the pelvis in various projections endovaginally. Transabdominal imaging was also performed. INDICATION: Pelvic bleeding and pain. Patient had an IUD placed in November 2018. FINDINGS: Uterus is anteverted measuring 7.0 x 2.5 x 4.0 cm. There is an IUD which appears to be appropriately centered in the endometrial canal. Endometrium is 4 mm in thickness. No myometrial mass is detected. Right ovary measures 2.6 x 1.9 x 1.8 cm, and the left ovary measures 1.8 x 2.7 x 2.2 cm. There is an 18 mm cyst in the left ovary with some internal debris. There is blood flow to the ovaries. Small amount of free fluid is present. IMPRESSION: 18 mm complex left ovarian cyst. The study is otherwise unremarkable. IUD appears to be appropriately centered in the endometrial canal. Dictated by: Dictated on workstation # [id number]
== END ==
LOC: RAD 13:56
PROVIDERS: ATTEND Obstetrics & Gynecology
DX: N83.202 Unspecified ovarian cyst, left side (principal); T83.39XA Other mechanical complication of intrauterine contraceptive device, initial encounter
CPT/HCPCS: 76830; 76856